=== PATIENT | male | born 1945 | race Caucasian/White ===

== ENCOUNTER 2019-06-24 02:10 | Observation (INO) | payer OTHER, SELFPAY ==
[2019-06-24] MEDS ORDERED: Meclizine HCl 25 MG TAB ONE (02:50)
[2019-06-24] MEDS ORDERED: Ondansetron PF 4 MG/2 ML Vial ONE (02:50)
[2019-06-24] MEDS ORDERED: Promethazine HCl 25 MG/ML VIAL ONE (02:50)
[2019-06-24] MEDS ORDERED: Acetaminophen 500 MG TAB ONE (03:00)
[2019-06-24 03:01] LABS: #Basophils 0.1 thou/uL (0.0-0.2); #Eosinphils 0.2 thou/uL (0.0-0.7); #Lymphocytes 1.7 thou/uL (1.20-3.40); #Monocytes 0.7 thou/uL (0.11-0.59); #Neutrophils 8.9 thou/uL (1.40-6.50); %Basophils 0.7 % (0.0-1.0); %Eosinophils 2.1 % (0.0-10.0); %Lymphocytes 14.3 % (21.0-51.0); %Monocytes 5.9 % (0.0-10.0); Hemoglobin 15.2 g/dL (14.0-18.0); Mean Corpuscular HGB CONC 34.5 g/dL (32.0-36.0); Mean Corpuscular Hemoglobin 33.2 pg (27.0-31.0); Mean Corpuscular Volume 96.2 fL (78.0-98.0); Mean Platelet Volume 8.8 fL (7.4-10.4); Platelet Count 160 thou/uL (130-400); RBC Distribution Width 11.7 % (11.5-14.5); Red Blood Cell (RBC) Count 4.57 mill/uL (4.70-6.10); White Blood Cell (WBC) Count 11.6 thou/uL (4.8-10.8)
[2019-06-24 03:14] LABS: ALT (SGPT) 52 U/L (8-55); AST (SGOT) 30 U/L (5-34); Albumin 4.4 g/dL (3.4-4.8); Alkaline Phosphatase 60 U/L (40-110); Anion Gap 18 mmol/L (10-20); BUN (Urea Nitrogen) 22 mg/dL (8.4-25.7); Bilirubin, Total 0.9 mg/dL (0.2-1.2); CK (CPK) 234 U/L (30-200); Calc. Creatinine Clearance 0 mL/min (70-130); Calcium 9.1 mg/dL (7.8-10.44); Carbon Dioxide 19 mmol/L (23-31); Chloride 104 mmol/L (98-107); Estimated GFR-MDRD 78; Globulin 2.9 g/dL (2.4-3.5); Glucose 209 mg/dL (83-110); Potassium 3.8 mmol/L (3.5-5.1); Protein, Total 7.3 g/dL (5.8-8.1); Sodium 137 mmol/L (136-145)
--- NOTE | 2019-06-24 06:33 | CT ---
CT BRAIN WITHOUT CONTRAST: Date: 06/24/2019 INDICATION: History of dizziness, vomiting, and feeling as if head is spinning. COMPARISON: None. FINDINGS: No acute infarct, hemorrhage, or hydrocephalus is present. Septum pellucidum and third ventricle are midline. There is mild chronic small vessel white matter ischemic change. The mastoid air cells and p aranasal sinuses are clear. The skull is intact. IMPRESSION: No acute intracranial abnormality. POS: BH
[2019-06-24] MEDS ORDERED: Acetaminophen 325 MG TAB PO PRN (06:38)
[2019-06-24] MEDS ORDERED: Ondansetron PF 4 MG/2 ML Vial IVP PRN ×2 (06:38→10:08)
[2019-06-24] MEDS ORDERED: Ondansetron ODT 4 MG TAB SL PRN (06:38)
[2019-06-24] MEDS ORDERED: Promethazine HCl 25 MG/ML VIAL SLOW IVP PRN (06:39)
--- NOTE | 2019-06-24 06:43 | CT ---
CTA HEAD WITH IV CONTRAST AND 3D REFORMATTED IMAGING: Date: 06/24/2019 INDICATION: History of dizziness and neck pain. COMPARISON: Noncontrast CT brain dated 06/24/2019 at 0426 hours. FINDINGS: The distal right cervical ICA is highly tortuous and mildly ectatic measuring up to 7.0 mm in its gre atest diameter on image 51 of the coronal series. Within its tortuous segment, there is a small, 2.8 x 2.5 mm, aneurysm protruding off the posterior and lateral curvature of the right ICA on image 22 of series 2 and image 55 of series 300. No hemodynamically significant stenosis is demonstrated. There are mild to moderate calcifications of the cavernous and supraclinoid ICAs. The ACAs, MCAs, and cargo surveyor are patent. The vertebral arteries and basilar artery are patent. No area of abnormal enhancement is evident. There is mild chronic small vessel white matter ischemic change. IMPRESSION: 1. No intracranial hemodynamically significant stenosis, occlusion, or aneurysm formation. 2. Highly ectatic distal right cervical ICA with a small 2.8 mm aneurysm protruding off the posterol ateral wall of the distal right cervical ICA. Findings called to Dr. Angel at 0531 hours on 06/24/2019. CODE CR. POS: BH
[2019-06-24 07:54] VITALS: BMI 35.6
[2019-06-24] MEDS ORDERED: FLU VACC TS2019-20(65YR UP)/PF 180 MCG/0.5 ML SYRINGE IM ONE (08:00)
[2019-06-24] MEDS ORDERED: Prevnar 13-Val Conj/PF 0.5 ML SYRINGE IM ONE (08:00)
--- NOTE | 2019-06-24 09:27 | MRI ---
BRAIN MRI WITHOUT CONTRAST: HISTORY: Dizziness. Vomiting. Evaluate for posterior circulation CVA. COMPARISON: None. FINDINGS: No evidence of hemorrhage on the axial gradient echo sequence. Calvarium has a normal T1 marrow signal intensity. Midline brain parenchymal structures are unremark able. No parenchymal mass, mass effect, or midline shift. Age-appropriate brain volume. Cortical dave-whi te matter differentiation is preserved. No hydrocephalus. There are T2 and FLAIR white matter hyper intensities due to chronic small-vessel ischemic change. Adequate aeration of the sinuses and mastoid air cells. Note is made of a jesus cisterna magna. IMPRESSION: 1. Absent restricted diffusion. No acute infarct. 2. Age-appropriate brain volume. 3. Chronic small-vessel ischemic changes of the white matter. POS: CET
--- NOTE | 2019-06-24 10:18 | PDOC.EVN ---
Event Note - Event Note Event Note: Per Nurse who spoke with Dr. Graves, no indication for lumbar puncture and neurosurgery will sign off. Will cancel the procedure and follow the patient for additional symptoms. Per patient, vertigo short in duration, no additional episodes since admission. Benign in nature. Patient reported worsening during change in position however gianni hallpike maneuver negative.
[2019-06-24] MEDS ORDERED: Meclizine HCl 25 MG TAB PO SCH (12:00)
--- NOTE | 2019-06-24 12:14 | PRG ---
DATE OF SERVICE: 06/24/2019 This is a 50-minute initial hospital visit note, in which 50 minutes were spent reviewing the imaging record, evaluation, examination of patient and formulation of plan. Greater than 50% time was spent in counseling. I reviewed the notes of my colleague, Padmini Goddard PA-C, and agree with its content. SUBJECTIVE: Mr. May is a 74-year-old man with a cardiac history, presented with nausea and vertigo. He did not have a thunderclap headache. There was concern that initially this was the case, but the patient who is neurologically intact and an excellent historian and is adamant that this was not the case. He was found on head CT to have no acute findings, CTA; however, demonstrated a cervical carotid small posterior aneurysm again in the neck, however, on my read, not only is that present, but there is also a small 2 mm right PCOM region aneurysm in my opinion. This was not read out on the radiology report, appears to be present in my opinion. Given the negative head CT, I had originally requested a spinal tap to assess for xanthochromia; however, now that I have confirmed that there is no thunderclap headache, this is an incidental finding. In regard to his cervical carotid aneurysm, I recommend a consultation with doctors Luis Carlos or Donovan. In regard to the small PCOM aneurysm on the right side, the risk of hemorrhage is 0.5% per year and as such, I would just arrange for followup CT angiogram in approximately six weeks. If he needs to be on blood thinners from my standpoint that is fine. He may be dismissed whenever his dizziness is under control. ASSESSMENT: 1. 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 2. 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 3. Nausea. Job ID: [id number]
[2019-06-24] MEDS ORDERED: Iopamidol-370 76% 500 ML 1 ML ONE (14:34)
--- NOTE | 2019-06-24 15:26 | CON ---
DATE OF CONSULTATION: I was asked to see Mr. May in regard to a carotid artery aneurysm. I have reviewed his CT angiogram of the [place], which extends down into the distal carotid system. His right internal carotid artery makes a loop within the neck and is fairly consistent in its diameter throughout the neck. I see no evidence of carotid artery aneurysm. Job ID: [id number]
[2019-06-24 15:49] VITALS: BP 135/94; TEMP 98.6
--- NOTE | 2019-06-26 20:55 | DIS ---
DATE OF ADMISSION: 06/24/2019 DATE OF DISCHARGE: 06/24/2019 HOSPITAL COURSE: Mr. May is a 74-year-old male with no medical history, who presented with vertigo. During his inpatient stay, CT imaging was suspicious of right cervical carotid aneurysm. However, Thoracic Surgery was consulted and deemed the carotid artery to have no aneurysm. Neurosurgery was consulted as well regarding an incidental finding of a right posterior communicating artery aneurysm. However, in the absence of associated symptoms and the size of the aneurysm, it was deemed to be not required for intervention. The patient's vertigo resolved by the time he arrived to the ED, it was a very short episode that lasted less than a minute and was benign in nature. On the day of discharge, the patient's symptoms have completely resolved. He was hemodynamically stable and was feeling well. PHYSICAL EXAMINATION: VITAL SIGNS: Unremarkable. GENERAL: On exam, he was in no apparent distress. Alert and oriented x3. HEENT: Normocephalic, atraumatic. No ear or nasal discharge. The tympanic membranes are intact bilaterally. CARDIAC: Regular rate and rhythm. No murmurs or gallops. LUNGS: Clear to auscultation bilaterally. No rales, wheezing or rhonchi. ABDOMEN: Soft, nontender, nondistended. EXTREMITIES: No edema. NEUROLOGIC: No nystagmus appreciated. Cranial nerves intact 2 through 12. [place]-Hallpike maneuver was negative. PSYCHIATRIC: Proper mood and affect. Alert and oriented x3. ASSESSMENT AND PLAN: Mr. May is a 74-year-old male with no medical history, who presented with benign vertigo, likely a result of benign paroxysmal positional vertigo. The patient also had an incidental finding of a posterior communicating aneurysm that was nonbleeding. Neurosurgery did not require intervention. The patient was discharged home with education regarding red flags for vertigo that should prompt him to show up again in the ED. He was discharged home with a followup appointment with his primary care physician within 3 days. Job ID: [id number]
== END 2019-06-24 18:40 | disposition home or self-care (01) ==
LOC: ERS 02:10 → 2SE 05:20
PROVIDERS: ADMIT Internal Medicine Sleep Medicine; ATTEND Internal Medicine Sleep Medicine
DX: R42 Dizziness and giddiness (principal); I67.1 Cerebral aneurysm, nonruptured; E78.5 Hyperlipidemia, unspecified; I10 Essential (primary) hypertension; E78.00 Pure hypercholesterolemia, unspecified; Z87.891 Personal history of nicotine dependence; Z79.899 Other long term (current) drug therapy
CPT/HCPCS: 36415; 70450; 70496; 70551; 80053; 82550; 84484; 85025; 93005; 96361; 96374; 96375; 96376; G0378; J2405; J2550; J8597; Q9967